=== PATIENT | male | born 1995 | race Caucasian/White ===

== ENCOUNTER 2017-11-28 23:40 | Emergency (ER) | payer OTHER ==
[2017-11-28 23:52] VITALS: BP 122/74; PULSE 88; TEMP 99.1; BMI 25.0
[2017-11-29] MEDS ORDERED: AZITHROMYCIN 250 MG TABLET PO ONE (00:17)
[2017-11-29] MEDS ORDERED: ACETAMINOPHEN 500 MG TABLET (FP) PO ONE (00:17)
[2017-11-29] MEDS ORDERED: AZITHROMYCIN 250 MG TABLET ONE (00:18)
--- NOTE | 2017-11-29 00:18 | PDOC ---
History of Present Illness - General Chief Complaint: Pain, Acute Stated Complaint: DIFFICULTY SWALLOWING, BODY ACHES Time Seen by Provider: 11/28/17 23:56 History Source: Patient - History of Present Illness Timing/Duration: 24 hours Modifying Factors: improves with: eating. worse with: cold therapy, immobilization, medication, movement, rest, other Associated Symptoms: reports: fever/chills. denies: denies symptoms, chest pain , cough, diaphoresis, headaches, loss of appetite, malaise, nausea/vomiting, rash, seizure, shortness of breath, syncope, weakness, other Aspirin Received prior to arrival: No: no aspirin today, unknown, 81 mg x 1, 81 mg x 2, 81 mg x 3, 81 mg x 4, 325 mg x 1, provided at home, provided by EMS, provided by [facility] Contraindications(Core Measure): No: Allergy, Other, Active Blding w/i 24 hrs., Plavix, Receiving Warfarin Beta Braxton Contraindications(Core Measure): No: Not Prescribed, Allergy, Bradycardia (HR <60bpm), Advanced Heart Block, Pacemaker, Other Past History - Travel Traveled outside of the country in the last 30 days: No Close contact w/someone who was outside of country & ill: No - Past Medical History Allergies/Adverse Reactions: Allergies Allergy/AdvReac Type Severity Reaction Status Date / Time Penicillins Allergy Verified 11/28/17 23:47 Home Medications: Ambulatory Orders Azithromycin [Zithromax Tri-Juan C (3 DAYS) -] 500 mg PO DAILY #3 tablet 11/29/17 COPD: No Other medical history: DENIES - Suicide/Smoking/Psychosocial Hx Smoking History: Never smoked Have you smoked in the past 12 months: No Information on smoking cessation initiated: No Hx Alcohol Use: No Drug/Substance Use Hx: No Substance Use Type: None Review of Systems - Review of Systems Constitutional: Yes: Chills, Fever. No: Symptoms Reported, See HPI, Diaphoresis , Loss of Appetite, Malaise, Night Sweats, Weakness, Weight Stable, Unintentional Wgt. Loss, Unexplained wgt Loss, Other HEENTM: Yes: Ear Pain, Throat Pain. No: Symptoms Reported, See HPI, Eye Pain, Blurred Vision, Tearing, Recent change in vision, Double Vision, Cataracts, Ocular Prothesis, Ear Discharge, Nose Pain, Nose Congestion, Tinnitus, Nose Bleeding, Hearing Loss, Throat Swelling, Mouth Pain, Dental Problems, Difficulty Swallowing, Mouth Swelling, Other Respiratory: No: Symptoms reported, See HPI, Cough, Orthopnea, Shortness of Breath, SOB with Exertion, SOB at Rest, Stridor, Wheezing, Productive cough, Hemoptysis, Other Cardiac (ROS): No: Symptoms Reported, See HPI, Chest Pain, Edema, Irregular Heart Rate, Lightheadedness, Palpitations, Syncope, Chest Tightness, Other ABD/GI: No: Symptoms Reported, See HPI, Abdominal Distended, Abd. Pain w/ defecation, Blood Streaked Bowels, Constipated, Diarrhea, Difficulty Swallowing , Nausea, Poor Appetite, Poor Fluid Intake, Rectal Bleeding, Vomiting, Indigestion, Abdominal cramping, Tarry Stools, Other : No: Symptoms Reported, See HPI, Burning, Dysuria, Discharge, Frequency, Flank Pain, Hematuria, Incontinence, Pain, Urgency, Testicular Mass, Testicular Swelling, Lesions, Testicular Pain, Other Musculoskeletal: No: Symptoms Reported, See HPI, Back Pain, Gout, Joint Pain, Joint Swelling, Muscle Pain, Muscle Weakness, Neck Pain, Joint Stiffness, Other Integumentary: No: Symptoms Reported, See HPI, Bruising, Change in Color, Change in Hair/Nails, Dryness, Erythema, Flushing, Lesions, Lumps, Pallor, Pruritus, Rash, Sweating, Other Neurological: No: Symptoms reported, See HPI, Headache, Numbness, Paresthesia, Pre-Existing Deficit, Seizure, Tingling, Tremors, Weakness, Unsteady Gait, Ataxia, Dizziness, Other Psychiatric: No: Anxiety, Depression, Frequent Crying, Stressors, Sleep Pattern Change, Emotional Problems, Mood Swings, Change in Appetite, Other *Physical Exam - Vital Signs Last Vital Signs Temp Pulse Resp BP Pulse Ox 99.1 F 88 18 122/74 100 11/28/17 23:48 11/28/17 23:48 11/28/17 23:48 11/28/17 23:48 11/28/17 23:48 - Physical Exam General Appearance: Yes: Nourished, Appropriately Dressed. No: Apparent Distress HEENT: positive: EOMI, JOLEEN, Normal Voice, TMs Normal, Pharyngeal Erythema (AND EXUDATES ON TONSILS) Neck: positive: Tender, Trachea midline, Normal Thyroid, Supple Respiratory/Chest: positive: Chest Tender, Lungs Clear, Normal Breath Sounds Cardiovascular: positive: Regular Rhythm, Regular Rate, S1, S2 Gastrointestinal/Abdominal: positive: Flat, Soft Musculoskeletal: positive: Normal Inspection. negative: CVA Tenderness Extremity: positive: Normal Capillary Refill, Normal Inspection, Normal Range of Motion Integumentary: positive: Normal Color, Dry, Warm Neurologic: positive: Fully Oriented, Alert, Normal Mood/Affect Medical Decision Making - Medical Decision Making 11/29/17 01:41 Pt has obvious strep throat. No cx will be sent. He is PCN allergic. We will treat with zpak 500mg daily x 7 days. Ears clear. Exam otherwise normal. Pt is able to eat and drink and he is not dehydrated. *DC/Admit/Observation/Transfer Diagnosis at time of Disposition: Strep pharyngitis - Discharge Dispostion Disposition: HOME Condition at time of disposition: Stable Decision to Admit order: No - Prescriptions Prescriptions: Azithromycin [Zithromax Tri-Juan C (3 DAYS) -] 500 mg PO DAILY #3 tablet - Referrals - Patient Instructions Printed Discharge Instructions: DI for Strep Throat - Post Discharge Activity
[2017-11-29] MEDS ORDERED: ACETAMINOPHEN 500 MG TABLET (FP) ONE (00:19)
== END 2017-11-29 00:24 | disposition home or self-care (01) ==
LOC: FER 23:40
DX: J02.0 Streptococcal pharyngitis (principal)
CPT/HCPCS: 99281-25